=== PATIENT | male | born 1985 | race Caucasian/White ===

== ENCOUNTER 2025-08-08 19:34 | Emergency (ER) | payer SELFPAY ==
[~2025-08-08] VITALS: Ht 175.3 cm; Wt 84.0 kg
[2025-08-08 19:59] VITALS: O2SAT 99
[2025-08-08] MEDS: KETOROLAC 15MG/ML VIAL IM ONE (21:23)
[2025-08-08] MEDS ORDERED: CEPH500C2 MT (22:51)
[2025-08-08 23:14] VITALS: BP 133/96; PULSE 97; RESP 14; TEMP 36.6; O2SAT 96
== END 2025-08-08 23:15 | disposition home or self-care (01) ==
LOC: ER 19:34
DX: S61.431A Puncture wound without foreign body of right hand, initial encounter (principal); W29.4XXA Contact with nail gun, initial encounter; Y93.89 Activity, other specified; Y92.89 Other specified places as the place of occurrence of the external cause; Y99.8 Other external cause status
CPT/HCPCS: 99283; 73130; 96372; J1885